=== PATIENT | male | born 1985 | race African-American/Black ===

== ENCOUNTER 2021-02-12 18:46 | Emergency (ER) | payer SELFPAY ==
[~2021-02-12] VITALS: Ht 175.3 cm; Wt 99.8 kg
[2021-02-12] MEDS ORDERED: IBUPROFEN 600 MG TABLET PO ONE (20:30)
[2021-02-12] MEDS ORDERED: IBUPROFEN 600 MG TABLET ONE (20:54)
[2021-02-12 21:02] VITALS: BP 145/80
== END 2021-02-12 21:02 | disposition home or self-care (01) ==
LOC: ER 18:48
DX: M62.830 Muscle spasm of back (principal); F41.9 Anxiety disorder, unspecified
CPT/HCPCS: 71045-TC